=== PATIENT | female | born 1975 | race Caucasian/White ===

== ENCOUNTER 2017-12-12 10:18 | Emergency (ER) | payer BC ==
[2017-12-12 11:01] VITALS: BP 135/79
--- NOTE | 2017-12-12 11:44 | UC ---
UC General HPI - HPI Summary HPI Summary: Pt presents with c/o sudden onset of right side neck "swelling" that is tender and "feels like a hard marble" X 2 days. Denies, night sweats, unintentional weight loss, fever, chills, sore throat, ear ache cough, URI symptoms. 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 - History of Current Complaint Chief Complaint: UCGeneralIllness Stated Complaint: SWOLLEN GLANDS (NECK),EAR PAIN Time Seen by Provider: 12/12/17 10:56 Hx Obtained From: Patient Hx Last Menstrual Period: unknown Onset/Duration: Sudden Onset Timing: Constant Onset Severity: Mild Current Severity: Moderate Pain Intensity: 8 Associated Signs & Symptoms: Positive: Headache - Allergy/Home Medications Allergies/Adverse Reactions: Allergies Allergy/AdvReac Type Severity Reaction Status Date / Time No Known Allergies Allergy Verified 12/12/17 10:57 Home Medications: Home Medications Valsartan/HCTZ 320/25(NF) [Diovan Hct 320/25(NF)] 1 tab PO DAILY 12/12/17 [ History Confirmed 12/12/17] amLODIPine TAB* [Norvasc 5 mg TAB*] 5 mg PO DAILY 12/12/17 [History Confirmed ] PMH/Surg Hx/FS Hx/Imm Hx Previously Healthy: Yes Cardiovascular History: Hypertension - Surgical History Surgical History: Yes Surgery Procedure, Year, and Place: hysterectomy. . gallbladder removal. ankle surgery - Family History Known Family History: Positive: Cardiac Disease - Social History Occupation: Employed Full-time Lives: With Family Alcohol Use: None Substance Use Type: None Smoking Status (MU): Never Smoked Tobacco Have You Smoked in the Last Year: No Review of Systems Constitutional: Chills, Fatigue Skin: Negative Eyes: Negative ENT: Other - lymphadenopathy Respiratory: Negative Cardiovascular: Negative Gastrointestinal: Negative Genitourinary: Negative Motor: Negative Neurovascular: Negative Musculoskeletal: Negative Neurological: Headache Psychological: Negative Is Patient Immunocompromised?: No All Other Systems Reviewed And Are Negative: Yes Physical Exam Triage Information Reviewed: Yes Appearance: Well-Appearing Vital Signs: Initial Vital Signs Temp 99.6 F 12/12/17 10:55 Pulse 84 12/12/17 10:55 Resp 18 12/12/17 10:55 BP 135/79 12/12/17 10:55 Pulse Ox 99 12/12/17 10:55 Vital Signs Reviewed: Yes Eye Exam: Normal ENT Exam: Normal Dental Exam: Normal Neck exam: Other Neck: Positive: Tenderness @ - right submaxillary, right parotid, Enlarged Nodes @ Respiratory Exam: Normal Cardiovascular Exam: Normal Musculoskeletal Exam: Normal Neurological Exam: Normal Psychological Exam: Normal Skin Exam: Normal Diagnostics - Laboratory Diagnostic Studies Completed/Ordered: rapid flu: negative Course/Dx - Differential Dx - Multi-Symptom Provider Diagnoses: lymphadenitis. viral syndrome Discharge - Sign-Out/Discharge Documenting (check all that apply): Discharge/Admit/Transfer - Discharge Plan Condition: Stable Disposition: HOME Patient Education Materials: Lymphadenopathy (ED), Viral Syndrome (ED) Referrals: Maria Luisa Dozier NP [Primary Care Provider] - As Soon As Possible Additional Instructions: Please follow up with your PCP as needed. If symptoms worsen, please seek medical attention as soon as possible. - Billing Disposition and Condition Condition: STABLE Disposition: HOME
== END 2017-12-12 12:00 | disposition home or self-care (01) ==
LOC: UCCORT 10:18
DX: I88.9 Nonspecific lymphadenitis, unspecified (principal); B34.9 Viral infection, unspecified; I10 Essential (primary) hypertension
CPT/HCPCS: 87502; 99211; G0463

== ENCOUNTER 2019-06-06 07:58 | Emergency (ER) | payer BC ==
--- OUTSIDE RECORDS SUMMARY | 2019-06-06 08:09 | XMS REPORT | Continuity of Care Document ---
:1975 External Reference #:[id number] Author Name Grace George NP (transmitted by agent of provider Shay Gonzalez) Address [address] [place] [address] Care Team Providers Name Role Phone Hossein Cornelius MD - Gastroenterology Care Team Information Stemhole Borer Philip Dozier MD - Family Medicine Care Team Information Stemhole Borer Christopher Swanson MD - Cardiovascular Care Team Information Stemhole Borer [phone] Disease Problems Active Problems Provider Date Peptic reflux disease Philip Dozier MD Onset: 04/17/2011 Difficulty breathing Ken Pimentel MD Onset: 09/25/2017 Essential hypertension Ken Pimentel MD Onset: 09/25/2017 Obesity Ken Pimentel MD Onset: 09/25/2017 Body mass index 40+ - severely obese Ken Pimentel MD Onset: 11/21/2017 Gastro-esophageal reflux disease with Natalee Bermeo NP Onset: 01/20/2018 esophagitis Body mass index 30+ - obesity Natalee Bermeo NP Onset: 01/20/2018 Chest pain Natalee Bermeo NP Onset: 01/20/2018 Morbid obesity Christopher Swanson MD Onset: 10/21/2018 Malaise and fatigue Christopher Swanson MD Onset: 10/21/2018 Disturbance in sleep behavior Christopher Swanson MD Onset: 10/21/2018 Edema Christopher Swanson MD Onset: 10/21/2018 Social History Type Date Description Comments Sex Unknown ETOH Use Denies alcohol use Tobacco Use Start: Unknown Patient has never smoked Recreational Drug Use Denies Drug Use Smoking Status Reviewed: 11/26/18 Patient has never smoked Allergies, Adverse Reactions, Alerts Active Allergies Reaction Severity Comments Date Darvocet Nausea And Vomiting 03/30/2011 Percocet Nausea And Vomiting 03/30/2011 Medications Active Medications SIG Qnty Indications Ordering Provider Date Valsartan 1 by mouth 30tabs Christopher Swanson MD 11/26/2018 80mg Tablets every day Chlorthalidone 1 by mouth 90tabs Natalee Bermeo, 10/21/2018 25mg Tablets every day SUPPLY CHAIN BUSINESS ANALYST Amlodipine Besylate 1 by mouth 30tabs Ken Pimentel, 07/01/2018 10mg every day Tablets Automatic Blood Pressure large adult I10 Jenise Dozier, 05/22/2017 Monitor size cuff SUPPLY CHAIN BUSINESS ANALYST Kit Prevacid 1 by mouth I10 Unknown 15mg Capsules DR every day History Medications Amoxicillin/Clavulanate 1 by mouth 20tabs I88.9 Jacoby, 04/07/2019 - Potassium twice a day BRITTANI Burden 04/20/2019 875-125mg Tablets Medications Administered in Office Medication SIG Qnty Indications Ordering Provider Date PPD Injection Philip Dozier MD 04/17/2011 Immunizations CPT Code Status Date Vaccine Lot # [id number] Given 04/07/2019 Tdap (Adacel) Ages 7 And Above Only [id number] Given 04/07/2019 Influenza Vac, Quadrivalent, Split, 0.5mL Dosage, [id number] Im Use [id number] Given 04/17/2011 Fluzone Trivalent Immunization 34539 Given 04/17/2011 Afluria Or Fluvirin Flu Vac Intramuscular [id number] Vital Signs Date Vital Result Comment 04/21/2019 3:03pm Body Temperature 98.7 F Weight 223.25 lb Heart Rate 84 /min BP Systolic 122 mmHg BP Diastolic 80 mmHg Height 64 inches 5'4" O2 % BldC Oximetry 99 % BMI (Body Mass Index) 38.3 kg/m2 04/07/2019 4:07pm Body Temperature 97.7 F Weight 224.00 lb Heart Rate 89 /min BP Systolic 120 mmHg BP Diastolic 68 mmHg Respiratory Rate 16 /min Height 63 inches 5'3" O2 % BldC Oximetry 98 % BMI (Body Mass Index) 39.7 kg/m2 Urine Dipstick - Blood neg Urine Dipstick - Protein neg Urine Dipstick - Glucose neg Urine Dipstick - Leukocytes neg Results Description No Information Available Procedures Date Code Description Status 11/18/2018 [id number] Mammogram Completed 06/28/2017 [id number] Mammogram Completed 09/26/2012 [id number] Mammogram Completed Medical Devices Description No Information Available Encounters Type Date Location Provider Dx Diagnosis Office Visit 04/07/2019 Jenise Gonzalez, BRITTANI E66.9 Obesity, unspecified 4:30p Z68.39 Body mass index (BMI) 39.0-39.9, adult Z23 Encounter for immunization R10.9 Unspecified abdominal pain I88.9 Nonspecific lymphadenitis, unspecified Office Visit 01/12/2019 7:30a [facility] Alix Bermeo Essential (primary) Cardiology BRITTANI Albright hypertension E66.01 Morbid (severe) obesity due to excess calories G47.9 Sleep disorder, unspecified Z68.41 Body mass index (BMI) 40.0-44.9, adult Office Visit 11/26/2018 8:15a [facility] Christopher Swanson, I10 Essential ( primary) Cardiology hypertension R07.9 Chest pain, unspecified K21.0 Gastro-esophageal reflux disease with esophagitis R53.83 Other fatigue G47.9 Sleep disorder, unspecified R60.9 Edema, unspecified Z68.41 Body mass index (BMI) 40.0-44.9, adult Assessments Date Code Description Provider 04/21/2019 G47.33 Obstructive sleep apnea syndrome Grace George, SUPPLY CHAIN BUSINESS ANALYST 04/21/2019 R05 Cough Grace George, SUPPLY CHAIN BUSINESS ANALYST 04/21/2019 J02.9 Pharyngitis Grace George, SUPPLY CHAIN BUSINESS ANALYST 04/07/2019 E66.9 Obesity, unspecified Jenise Dozier, SUPPLY CHAIN BUSINESS ANALYST 04/07/2019 Z68.39 Body mass index (BMI) 39.0-39.9, adult Jenise Dozier, BRITTANI 04/07/2019 Z23 Encounter for immunization Jenise Dozier, BRITTANI 04/07/2019 R10.9 Unspecified abdominal pain Jenise Dozier, SUPPLY CHAIN BUSINESS ANALYST 04/07/2019 I88.9 Nonspecific lymphadenitis, unspecified Jenise Dozier, SUPPLY CHAIN BUSINESS ANALYST 01/12/2019 I10 Essential (primary) hypertension Natalee Bermeo, BRITTANI 01/12/2019 E66.01 Morbid (severe) obesity due to excess calories Natalee Bermeo, BRITTANI 01/12/2019 G47.9 Sleep disorder, unspecified Natalee Bermeo NP 01/12/2019 Z68.41 Body mass index (BMI) 40.0-44.9, adult Natalee Bermeo NP 11/26/2018 I10 Essential (primary) hypertension Christopher Swanson MD 11/26/2018 R07.9 Chest pain, unspecified Christopher Swanson MD 11/26/2018 K21.0 Gastro-esophageal reflux disease with Christopher Swanson MD esophagitis 11/26/2018 R53.83 Other fatigue Christopher Swanson MD 11/26/2018 G47.9 Sleep disorder, unspecified Christopher Swanson MD 11/26/2018 R60.9 Edema, unspecified Christopher Swanson MD 11/26/2018 Z68.41 Body mass index (BMI) 40.0-44.9, adult Christopher Swanson MD Plan of Treatment Future Appointment(s):07/20/2019 8:15 am - [facility] MD at [facility]04/21/2019 - Grace George NPG47.33 Obstructive sleep apnea syndromeNew Orders:Sleep Study, Ordered: 04/21/19Comments:The patient will need a sleep study as she is fatigued and also snoring. Patient had overnight oximetry and it showed desaturations to 75%. The patient also with HTN and difficult to manage. Will ordera NPSG and then will follow.R05 CoughComments: May be a virus or the ARB medication. No TVC pathology and will follow.J02.9 PharyngitisComments:Patient has GERD and is seeing GI tomorrow. Functional Status Description No Information Available Mental Status Description No Information Available Referrals Refer to Reason for Referral Status Appt [facility] faxed referral and info per their Closed request, they will contact pt to schedule either today or tomorrow. pt aware. 04/13/[address] [place] [address] [address] [place] [address] [phone] Blake Levy MD faxed referral and info, they will call pt with Closed appt info. 03/05/19 [address] [place] [id number] [phone]
--- OUTSIDE RECORDS SUMMARY | 2019-06-06 08:09 | XMS REPORT | Continuity of Care Document ---
:1975 External Reference #:[id number] Author Name Grace George NP (transmitted by agent of provider Shay Gonzalez) Address [address] [place] [address] Care Team Providers Name Role Phone Hossein Cornelius MD - Gastroenterology Care Team Information Internet Marketing Strategist Philip Dozier MD - Family Medicine Care Team Information Internet Marketing Strategist [phone] Christopher Swanson MD - Cardiovascular Care Team Information Internet Marketing Strategist Disease Problems Active Problems Provider Date Peptic [...] Natalee Bermeo, 10/21/2018 25mg Tablets every day NEW CAR MAKE READY WORKER Amlodipine Besylate 1 by mouth 30tabs Ken Pimentel, 07/01/2018 10mg every day Tablets Automatic Blood Pressure large adult I10 Jenise Dozier, 05/22/2017 Monitor size cuff NEW CAR MAKE READY WORKER Kit Prevacid 1 by mouth I10 Unknown 15mg Capsules DR every day History Medications Amoxicillin/Clavulanate 1 by mouth twice 20tabs I88.9 Jacoby, 04/07/2019 - Potassium a day BRITTANI Buredn 04/20/2019 875-125mg Tablets Gaviscon 5 milliliters by Sky, 10/21/2018 - 95-358mg/15ML Suspension mouth every MD Christopher 04/20/2019 night at bedtime Medications Administered in Office Medication SIG Qnty Indications Ordering Provider Date PPD Injection Philip Dozier MD 04/17/2011 Immunizations CPT Code Status Date Vaccine Lot # [id number] Given 04/07/2019 Tdap (Adacel) Ages 7 And Above Only [id number] 95286 Given 04/07/2019 Influenza Vac, Quadrivalent, Split, 0.5mL Dosage, [id number] Im Use Q2038 Given 04/17/2011 Fluzone Trivalent Immunization 62696 Given 04/17/2011 Afluria Or Fluvirin Flu Vac Intramuscular [id number] Vital Signs Date Vital Result Comment 04/21/2019 [...] Available Procedures Date Code Description Status 11/18/2018 [id number] Mammogram Completed 10/21/2018 21929 Electrocardiogram Complete Completed 06/28/2017 [id number] Mammogram Completed 09/26/2012 [id number] Mammogram Completed Medical Devices Description No Information Available Encounters Type Date Location Provider Dx Diagnosis Office Visit 04/07/2019 Jenise Gonzalez NP E66.9 Obesity, unspecified 4:30p Z68.39 Body mass index (BMI) 39.0-39.9, adult Z23 Encounter for immunization R10.9 Unspecified abdominal pain I88.9 Nonspecific lymphadenitis, unspecified Office Visit 01/12/2019 7:30a [facility] Elvie, I10 Essential (primary) Cardiology BRITTANI Albright hypertension E66.01 Morbid (severe) obesity due to excess calories G47.9 Sleep disorder, unspecified Z68.41 Body mass index (BMI) 40.0-44.9, adult Office Visit 11/26/2018 8:15a [facility] Christopher Swanson, I10 Essential ( primary) Cardiology hypertension R07.9 Chest pain, unspecified K21.0 Gastro-esophageal reflux disease with esophagitis R53.83 Other fatigue G47.9 Sleep disorder, unspecified R60.9 Edema, unspecified Z68.41 Body mass index (BMI) 40.0-44.9, adult Office Visit 10/21/2018 8:45a Christopher Guardado, E66.01 Morbid ( severe) Cardiology obesity due to excess calories I10 Essential (primary) hypertension R06.00 Dyspnea, unspecified K21.0 Gastro-esophageal reflux disease with esophagitis R07.9 Chest pain, unspecified R53.83 Other fatigue G47.9 Sleep disorder, unspecified R60.9 Edema, unspecified Z68.41 Body mass index (BMI) 40.0-44.9, adult Assessments Date Code Description Provider 04/21/2019 G47.33 Obstructive sleep apnea syndrome Grace George NP 04/21/2019 R05 Cough Grace George NP 04/21/2019 J02.9 Pharyngitis Grace George, NEW CAR MAKE READY WORKER 04/07/2019 E66.9 Obesity, unspecified Jenise Dozier, NEW CAR MAKE READY WORKER 04/07/2019 Z68.39 Body mass index (BMI) 39.0-39.9, adult Jenise Dozier, NEW CAR MAKE READY WORKER 04/07/2019 Z23 Encounter for immunization Jenise Dozier, NEW CAR MAKE READY WORKER 04/07/2019 R10.9 Unspecified abdominal pain Jenise Dozier, NEW CAR MAKE READY WORKER 04/07/2019 I88.9 Nonspecific lymphadenitis, unspecified Jenise Dozier, NEW CAR MAKE READY WORKER 01/12/2019 I10 Essential (primary) hypertension Natalee Bermeo, BRITTANI 01/12/2019 E66.01 Morbid (severe) obesity due to excess calories Natalee Bermeo, BRITTANI 01/12/2019 G47.9 Sleep disorder, unspecified Natalee Bermeo, NEW CAR MAKE READY WORKER 01/12/2019 Z68.41 Body mass index (BMI) 40.0-44.9, adult Natalee Bermeo, BRITTANI 11/26/2018 I10 Essential (primary) hypertension Christopher Swanson MD 11/26/2018 R07.9 Chest pain, unspecified Christopher Swanson MD 11/26/2018 K21.0 Gastro-esophageal reflux disease with Christopher Swanson MD esophagitis 11/26/2018 R53.83 Other fatigue Christopher Swanson MD 11/26/2018 G47.9 Sleep disorder, unspecified Christopher Swanson MD 11/26/2018 R60.9 Edema, unspecified Christopher Swanson MD 11/26/2018 Z68.41 Body mass index (BMI) 40.0-44.9, adult Christopher Swanson MD 10/21/2018 E66.01 Morbid (severe) obesity due to excess calories Christopher Swanson MD 10/21/2018 I10 Essential (primary) hypertension Christopher Swanson MD 10/21/2018 R06.00 Dyspnea, unspecified Christopher Swanson MD 10/21/2018 K21.0 Gastro-esophageal reflux disease with Christopher Swanson MD esophagitis 10/21/2018 R07.9 Chest pain, unspecified Christopher Swanson MD 10/21/2018 R53.83 Other fatigue Christopher Swanson MD 10/21/2018 G47.9 Sleep disorder, unspecified Christopher Swanson MD 10/21/2018 R60.9 Edema, unspecified Christopher Swanson MD 10/21/2018 Z68.41 Body mass index (BMI) 40.0-44.9, adult Christopher Swanson MD Plan of Treatment Future Appointment(s):07/20/2019 8:15 am - Christopher [facility] MD at [facility]04/21/2019 - Grace George, BRITTANIG47.33 Obstructive sleep apnea syndromeNew Orders:Sleep Study, Ordered: [...] Description No Information Available Referrals Refer to Dr Reason for Referral Status Appt Replaced By [facility] faxed referral and info per their Closed request, they will contact pt to schedule either today or tomorrow. pt aware. 04/13/[address] [place] [address] [address] [place], [place] [phone] Blake Levy MD faxed referral and info, they will call pt Scheduled 04/22 with appt info. 03/05/19 [address] [place] [address] [phone]
--- OUTSIDE RECORDS SUMMARY | 2019-06-06 08:09 | XMS REPORT | Continuity of Care Document ---
:1975 External Reference #:[id number] Author Name Jenise Dozier NP Address [address] [place] [address] Care Team Providers Name Role Phone Hossein Cornelius MD - Gastroenterology Care Team Information Collet Driller Philip Dozier MD - Family Medicine Care Team Information Collet Driller Christopher Swanson MD - Cardiovascular Care Team Information Collet Driller [phone] Disease Problems Active Problems Provider Date Peptic [...] Medications Active Medications SIG Qnty Indications Ordering Date Provider Amoxicillin/Clavulanat 1 by mouth twice a 20tabs I88.9 Jacoby, 04/07/2019 e Potassium day BRITTANI Burden 875-125mg Tablets Valsartan 1 by mouth every 30tabs Christopher Swanson, 11/26/2018 80mg Tablets day Chlorthalidone 1 by mouth every 90tabs Elvie, 10/21/2018 25mg day BRITTANI Albright Tablets Gaviscon 5 milliliters by Christopher Swanson, 10/21/2018 95-358mg/15ML mouth every night Suspension at bedtime Amlodipine Besylate 1 by mouth every 30tabs Margarito, 07/01/2018 10mg day MD Ken Tablets Automatic Blood large adult size I10 Jacoby, 05/22/2017 Pressure Monitor cuff BRITTANI Burden Kit Prevacid 1 by mouth every I10 Unknown 15mg Capsules DR day Medications Administered in Office Medication SIG Qnty Indications Ordering Provider Date PPD Injection Philip Dozier MD 04/17/2011 Immunizations CPT Code Status Date Vaccine Lot # [id number] Given 04/07/2019 Tdap (Adacel) Ages 7 And Above Only [id number] Given 04/07/2019 Influenza Vac, Quadrivalent, Split, 0.5mL Dosage, [id number] Im Use Q2038 Given 04/17/2011 Fluzone Trivalent Immunization 80963 Given 04/17/2011 Afluria Or Fluvirin Flu Vac Intramuscular [id number] Vital Signs Date Vital Result Comment 04/07/2019 4:07pm Body Temperature 97.7 F Weight 224.00 lb Heart Rate 89 /min BP Systolic 120 mmHg BP Diastolic 68 mmHg Respiratory Rate 16 /min Height 63 inches 5'3" O2 % BldC Oximetry 98 % BMI (Body Mass Index) 39.7 kg/m2 Urine Dipstick - Blood neg Urine Dipstick - Protein neg Urine Dipstick - Glucose neg Urine Dipstick - Leukocytes neg 01/12/2019 7:50am Weight 236.00 lb Heart Rate 76 /min reg BP Systolic 136 mmHg BP Diastolic 88 mmHg BP Systolic Recheck 138 mmHg BP Diastolic Recheck 86 mmHg Respiratory Rate 16 /min Height 63 inches 5'3" BMI (Body Mass Index) 41.8 kg/m2 Results Description No Information Available Procedures Date Code Description Status 11/18/2018 [id number] Mammogram Completed 10/21/2018 61425 Electrocardiogram Complete Completed 06/28/2017 [id number] Mammogram Completed 09/26/2012 [id number] Mammogram Completed Medical Devices Description No Information Available Encounters Type Date Location Provider Dx Diagnosis Office Visit 01/12/2019 [facility] Natalee Bermeo, Alix Essential (primary) 7:30a Cardiology RECORDS MANAGEMENT COORDINATOR hypertension E66.01 Morbid (severe) obesity due to excess calories G47.9 Sleep disorder, unspecified Z68.41 Body mass index (BMI) 40.0-44.9, adult Office Visit 11/26/2018 8:15a [facility] Christopher Swanson, I10 Essential ( primary) Cardiology hypertension R07.9 Chest pain, unspecified K21.0 Gastro-esophageal reflux disease with esophagitis R53.83 Other fatigue G47.9 Sleep disorder, unspecified R60.9 Edema, unspecified Z68.41 Body mass index (BMI) 40.0-44.9, adult Office Visit 10/21/2018 8:45a [facility] Christopher Swanson, E66.01 Morbid ( severe) Cardiology obesity due to excess calories I10 Essential (primary) hypertension R06.00 Dyspnea, unspecified K21.0 Gastro-esophageal reflux disease with esophagitis R07.9 Chest pain, unspecified R53.83 Other fatigue G47.9 Sleep disorder, unspecified R60.9 Edema, unspecified Z68.41 Body mass index (BMI) 40.0-44.9, adult Assessments Date Code Description Provider 04/07/2019 E66.9 Obesity, unspecified Jenise Dozier, BRITTANI 04/07/2019 Z68.39 Body mass index (BMI) 39.0-39.9, adult Jenise Dozier NP 04/07/2019 Z23 Encounter for immunization Jenise Dozier NP 04/07/2019 R10.9 Unspecified abdominal pain Jenise Dozier, BRITTANI 04/07/2019 I88.9 Nonspecific lymphadenitis, unspecified Jenise Dozier, BRITTANI 01/12/2019 I10 Essential (primary) hypertension Natalee Bermeo, [...] Christopher Swanson MD Plan of Treatment Future Appointment(s):04/21/2019 3:00 pm - Grace George NP at [facility] MD07/20/2019 8:15 am - Christopher [facility] MD at [facility]04/07/2019 - Jenise Dozier NPE66.9 Obesity, rfocmehztyoT48.39 Body mass index (BMI) 39.0- 39.9, [id number] Encounter for lmdqdgfrcagnN80.9 Unspecified abdominal painNew Xrays:Transvagingal Ultrasound, Ordered: 04/07/19I88.9 Nonspecific lymphadenitis , unspecifiedNew Medication:Amoxicillin/Clavulanate Potassium 875-125 mg - 1 by mouth twice a day Functional Status Description No Information Available Mental Status Description No Information Available Referrals Refer to Dr Reason for Referral Status Appt Date Blake Levy MD faxed referral and info, they will call pt Scheduled 04/13 with appt info. [facility] [address] [place] [address] [phone]
--- OUTSIDE RECORDS SUMMARY | 2019-06-06 08:09 | XMS REPORT | Continuity of Care Document ---
:1975 External Reference #:[id number] Author Name Grace George NP (transmitted by agent of provider Shay Gonzalez) Address [address] [place] [address] Care Team Providers Name Role Phone Hossein Cornelius MD - Gastroenterology Care Team Information [employer] Philip Dozier MD - Family Medicine Care Team Information [employer] Christopher Swanson MD - Cardiovascular Care Team Information [employer] Leader Disease Problems Active Problems Provider Date Peptic reflux disease Phliip Dozier MD Onset: 04/17/2011 Difficulty breathing Ken [...] Medications SIG Qnty Indications Ordering Date Provider Auto Cpap [id number] with 1units G47.33 Grace George, 06/01/2019 Device heated humidifier BALANCE TRUER and supplies. [email or web address]:99mos please provide modem and tag us Valsartan 1 by mouth every 30tabs Margarito, 11/26/2018 80mg Tablets day MD Ken Chlorthalidone 1 by mouth every 90tabs Elvie, 10/21/2018 25mg day BRITTANI Albright Tablets Amlodipine Besylate 1 by mouth every 30tabs Margarito, 07/01/2018 10mg day MD Ken Tablets Automatic Blood large adult size I10 Jacoby, 05/22/2017 Pressure Monitor cuff BRITTANI Burden Kit Prevacid 1 by mouth every I10 Unknown 15mg Capsules DR day History Medications Amoxicillin/Clavulanate 1 by mouth 20tabs I88.9 Jacoby, 04/07/2019 - Potassium twice a day BRITTANI Burden 04/20/2019 875-125mg Tablets Medications Administered in Office Medication SIG Qnty Indications Ordering Provider Date PPD Injection Philip Dozier MD 04/17/2011 Immunizations CPT Code Status Date Vaccine Lot # [id number] Given 04/07/2019 Tdap (Adacel) Ages 7 And Above Only [id number] Given 04/07/2019 Influenza Vac, Quadrivalent, Split, 0.5mL Dosage, [id number] Im Use [id number] Given 04/17/2011 Fluzone Trivalent Immunization [id number] Given 04/17/2011 Afluria Or Fluvirin Flu Vac Intramuscular [id number] Vital Signs Date Vital Result Comment 06/01/2019 3:30pm Body Temperature 97.8 F Weight 227.00 lb Heart Rate 91 /min BP Systolic 126 mmHg BP Diastolic 74 mmHg Height 64 inches 5'4" O2 % BldC Oximetry 96 % BMI (Body Mass Index) 39.0 kg/m2 04/21/2019 3:03pm Body Temperature 98.7 F Weight 223.25 lb Heart Rate 84 /min BP Systolic 122 mmHg BP Diastolic 80 mmHg Height 64 inches 5'4" O2 % BldC Oximetry 99 % BMI (Body Mass Index) 38.3 kg/m2 Results Description No Information Available Procedures Date Code Description Status 05/18/2019 99709 Polysomnography Sleep Staging 4+ Parameters Completed 11/18/2018 [id number] Mammogram Completed 06/28/2017 [id number] Mammogram Completed 09/26/2012 [id number] Mammogram Completed Medical Devices Description No Information Available Encounters Type Date Location Provider Dx Diagnosis Office Visit 04/21/2019 Ariel Israel Lori A, G47.33 Obstructive sleep 3:00p MD PETER apnea (adult) (pediatric) R05 Cough J02.9 Acute pharyngitis, unspecified Office Visit 04/07/2019 4:30p Jenise Gonzalez NP E66.9 Obesity, unspecified Z68.39 Body mass index (BMI) 39.0-39.9, adult Z23 Encounter for immunization R10.9 Unspecified abdominal pain I88.9 Nonspecific lymphadenitis, unspecified Office Visit 01/12/2019 7:30a [facility], I10 Essential (primary) Cardiology BRITTANI Albright hypertension E66.01 Morbid (severe) obesity due to excess calories G47.9 Sleep disorder, unspecified Z68.41 Body mass index (BMI) 40.0-44.9, adult Assessments Date Code Description Provider 06/01/2019 G47.33 Obstructive sleep apnea (adult) (pediatric) Grace George , BALANCE TR[employer]ER 06/01/2019 R05 Cough Grace George A, BALANCE TRUER 06/01/2019 J02.9 Pharyngitis Salma Georgei A, BALANCE TRUER 06/01/2019 J32.9 Chronic sinusitis Grace George A, BALANCE TRUER 05/18/2019 G47.33 Obstructive sleep apnea (adult) (pediatric) [place] [facility] [facility] [place]21/2019 G47.33 Obstructive sleep apnea syndrome Grace George, BALANCE TRUER 04/21/2019 R05 Cough Grace George A, BALANCE TRUER 04/21/2019 J02.9 Pharyngitis Salma Georgei A, BALANCE TRUER 04/07/2019 E66.9 Obesity, unspecified Jenise Dozier NP 04/07/2019 Z68.39 Body mass index (BMI) 39.0-39.9, adult Jenise Dozier, BRITTANI 04/07/2019 Z23 Encounter for immunization Jenise Dozier, BRITTANI 04/07/2019 R10.9 Unspecified abdominal pain Jenise Dozier NP 04/07/2019 I88.9 Nonspecific lymphadenitis, unspecified Jenise Dozier, BRITTANI 01/12/2019 I10 Essential (primary) hypertension Natalee Bermeo NP 01/12/2019 E66.01 Morbid (severe) obesity due to excess calories Natalee Bermeo NP 01/12/2019 G47.9 Sleep disorder, unspecified Natalee Bermeo NP 01/12/2019 Z68.41 Body mass index (BMI) 40.0-44.9, adult Natalee Bermeo NP Plan of Treatment Future Appointment(s):08/03/2019 3:40 pm - Grace George NP at Shay Gonzalez MD07/20/2019 8:15 am - Christopher Swanson MD at [facility]06/01/2019 - Grace George NPG47.33 Obstructive sleep apnea (adult) (pediatric)New Medication:Auto Cpap - 5-18mda86 with heated humidifier and supplies. aislinn: 99mos please provide modem and tagusComments:The patient with mild GARY and is very fatigued. Patient is willing to try Autocpap and chose a DME in [place]. Will send script for machine and supplies and follow after 6-8 weeks.R05 CoughComments:No TVC pathology and patient is still coughing. Patient feels maxillary sinus pressure and pain and post nasal dripping. Will need Ct scan sinus to see if this is from a sinus etiology. If not may be from her GERD.J02.9 PharyngitisComments:Patient has an ulcer and also Busby's esophagus and is atking Prevacid and following with GI.J32.9 Chronic sinusitisNew Xrays:Ct sinus here no dye, Ordered: 06/01/19Comments:Will schedule a CT to R/O significant sinus pathology and also an etiology for this cough.AllFollow up:8 weeks s/o cpap /new [place] Functional Status Description No Information Available Mental Status Description No Information Available Referrals Refer to Reason for Referral Status Appt Date [facility] faxed referral and info per their Closed request, they will contact pt to schedule either today or tomorrow. pt aware. 04/13/[address] [place], [place] [phone] Blake Levy MD faxed referral and info, they will call pt with Closed appt info. [facility] [address] [facility] [address] [place] [address] [phone]
[2019-06-06 08:18] VITALS: BP 126/78
--- NOTE | 2019-06-06 09:16 | UC ---
Respiratory Complaint HPI - HPI Summary HPI Summary: Pt presents with c/o cough, nasal congestion, wheezing, sob with exertion, X 2 weeks. Pt states that she has been using OTC medications with no improvement and is feeling worse than onset of symptoms. - History of Current Complaint Chief Complaint: UCRespiratory Stated Complaint: CONGESTION,COUGH,ZURITA Time Seen by Provider: 06/06/19 08:23 Hx Obtained From: Patient Hx Last Menstrual Period: unknown ?: No Onset/Duration: Gradual Onset, Lasting Weeks, Still Present, Worse Since - onset Timing: Constant Severity Initially: Mild Severity Currently: Moderate Pain Intensity: 7 Pain Scale Used: 0-10 Numeric Character: Cough: Productive Aggravating Factors: Exertion, Deep Breaths, Recumbent Position Alleviating Factors: Nothing Associated Signs And Symptoms: Positive: Chills, Wheezing, URI, Nasal Congestion - Risk Factors Pulmonary Embolism Risk Factors: Negative Cardiac Risk Factors: Hypertension Pseudomonas Risk Factors: Negative Tuberculosis Risk Factors: Negative - Allergies/Home Medications Allergies/Adverse Reactions: Allergies Allergy/AdvReac Type Severity Reaction Status Date / Time oxycodone [From Percocet] Allergy Vomiting Verified 06/06/19 08:12 propoxyphene Allergy Vomiting Verified 06/06/19 08:12 [From Darvocet-N] Home Medications: Home Medications Chlorthalidone TAB* [Hygroton TAB*] 50 mg PO DAILY 06/06/19 [History Confirmed 06/06/19] Lansoprazole CAP (NF) [Prevacid CAP (NF)] 30 mg PO DAILY 06/06/19 [History Confirmed 06/06/19] Valsartan [Valsartan 320 MG] 320 mg PO DAILY 06/06/19 [History Confirmed ] PMH/Surg Hx/FS Hx/Imm Hx Previously Healthy: Yes Cardiovascular History: Hypertension - Surgical History Surgical History: Yes Surgery Procedure, Year, and Place: hysterectomy. . gallbladder removal. ankle surgery - Family History Known Family History: Positive: Cardiac Disease - Social History Occupation: Employed Full-time Lives: With Family Alcohol Use: None Substance Use Type: None Smoking Status (MU): Never Smoked Tobacco Have You Smoked in the Last Year: No - Immunization History Vaccination Up to Date: Yes Review of Systems All Other Systems Reviewed And Are Negative: Yes Constitutional: Positive: Fever, Chills, Fatigue Skin: Positive: Negative Eyes: Positive: Negative ENT: Positive: Sinus Congestion Respiratory: Positive: Shortness Of Breath, Cough Cardiovascular: Positive: Negative Gastrointestinal: Positive: Negative Genitourinary: Positive: Negative Motor: Positive: Negative Neurovascular: Positive: Negative Musculoskeletal: Positive: Myalgia Neurological: Positive: Headache Psychological: Positive: Negative Is Patient Immunocompromised?: No Physical Exam Triage Information Reviewed: Yes Appearance: Ill-Appearing Vital Signs: Initial Vital Signs Temp 97.9 F 06/06/19 08:10 Pulse 72 06/06/19 08:10 Resp 16 06/06/19 08:10 BP 126/78 06/06/19 08:10 Pulse Ox 100 06/06/19 08:10 Vital Signs Reviewed: Yes Eye Exam: Normal ENT: Positive: Nasal congestion, TM bulging Dental Exam: Normal Neck exam: Normal Respiratory: Positive: Decreased breath sounds Cardiovascular Exam: Normal Musculoskeletal Exam: Normal Neurological Exam: Normal Psychological Exam: Normal Skin Exam: Normal Respiratory Course/Dx - Course Course Of Treatment: I discussed viral vs bacterial infection and pt requested an antibiotic. - Differential Dx/Diagnosis Differential Diagnosis/HQI/PQRI: Bronchitis, Influenza Provider Diagnosis: Bronchitis Discharge ED - Sign-Out/Discharge Documenting (check all that apply): Patient Departure All imaging exams completed and their final reports reviewed: No Studies - Discharge Plan Condition: Stable Disposition: HOME Prescriptions: Albuterol HFA INHALER* [Ventolin HFA Inhaler*] 1 - 2 puff INH Q6H PRN #1 mdi PRN Reason: Sob/Wheezing Azithromycin TAB* [Zithromax TAB (Z-DEDE) 250 mg #6 tabs] 2 tab PO .TODAY, THEN 1 DAILY #1 dede Benzonatate CAP* [Tessalon 100 MG CAP*] 200 mg PO Q8H PRN #30 cap PRN Reason: Cough predniSONE TAB* [Deltasone 10 MG TAB*] 30 mg PO DAILY #12 tab Patient Education Materials: Acute Bronchitis (ED) Referrals: Maria Luisa Dozier NP [Primary Care Provider] - If Needed - Billing Disposition and Condition Condition: STABLE Disposition: Home - Attestation Statements Provider Attestation: I was available for consult. This patient was seen by the VANESSA. The patient was not presented to , seen by or examined by nh -Joshua Gimenez MD
== END 2019-06-06 08:36 | disposition home or self-care (01) ==
LOC: UCCORT 07:58
DX: J40 Bronchitis, not specified as acute or chronic (principal); R09.81 Nasal congestion; I10 Essential (primary) hypertension; R51 Headache; M79.10 Myalgia, unspecified site; Z88.5 Allergy status to narcotic agent; Z79.899 Other long term (current) drug therapy
CPT/HCPCS: 99212; G0463